=== PATIENT | female | born 1995 | race Caucasian/White ===

== ENCOUNTER 2024-11-01 13:28 | Emergency (ER) | payer OTHER ==
[2024-11-01] MEDS ORDERED: Famotidine 20 MG TAB ONE (13:57)
[2024-11-01 15:02] LABS: #Basophils Less than 0.03 10x3/uL (0.0-0.2); #Eosinophils 0.04 10x3/uL (0.0-0.5); #Monocytes 0.79 10x3/uL (0.0-1.1); #Neutrophils 7.98 10x3/uL (1.5-8.4); %Basophils 0.1 % (0.0-2.0); %Eosinophils 0.4 % (0.0-6.0); %Lymphocytes 15.4 % (18.0-47.0); %Monocytes 7.5 % (0.0-10.0); Hematocrit 35.2 % (34.9-44.5); Mean Corpuscular HGB CONC 34.1 g/dL (32.0-36.0); Mean Corpuscular Hemoglobin 29.6 pg (27.0-33.0); Mean Corpuscular Volume 86.9 fL (81.6-98.3); Mean Platelet Volume 9.4 fL (7.4-10.4); Platelet Count 264 10x3/uL (150-450); RBC Distribution Width 11.9 % (11.5-14.5); Red Blood Cell (RBC) Count 4.05 10x6/uL (3.90-5.03)
[2024-11-01 15:04] LABS: Bilirubin Neg (Negative); Blood, Urine 10 (Negative); Clarity Slightly Cloudy (Clear); Glucose, Urine (Dipstick) Normal (Negative); Ketone, Urine Negative (Negative); Leukocyte 25 (Negative); Nitrite Negative (Negative); Protein, Urine (Dipstick) Negative (Neg-Trace); Specific Gravity, Urine 1.015 (1.005-1.030); Urobilinogen Normal mg/dL (Less than 2)
[2024-11-01 15:38] LABS: ALT (SGPT) 11 U/L (8-55); AST (SGOT) 14 U/L (5-34); Albumin 3.1 g/dL (3.5-5.0); Alkaline Phosphatase 54 U/L (40-110); Anion Gap 11 mmol/L (10-20); BUN (Urea Nitrogen) 7 mg/dL (7.0-18.7); Bilirubin, Total 0.2 mg/dL (0.2-1.2); Calc. Creatinine Clearance 0 mL/min (70-130); Carbon Dioxide 22 mmol/L (22-29); Chloride 108 mmol/L (98-107); Estimated GFR 122; Globulin 3.5 g/dL (2.4-3.5); Glucose 73 mg/dL (70-105); Lipase 20 U/L (8-78); Potassium 3.4 mmol/L (3.5-5.1); Protein, Total 6.6 g/dL (6.0-8.3); Sodium 138 mmol/L (136-145)
[2024-11-01 15:44] LABS: Bacteria/HPF None Seen HPF (None Seen); CAUTI Indications for Culture Pregnancy; RBC/HPF 0-3 HPF (0-3); Squamous Epithelial 0-3 HPF (0-3); Urine Culture Reflex Yes Yes; WBC/HPF 0-3 HPF (0-3)
== END 2024-11-01 16:08 | disposition home or self-care (01) ==
LOC: CSHERS 13:28
DX: O99.891 Other specified diseases and conditions complicating pregnancy (principal); R10.13 Epigastric pain; R10.2 Pelvic and perineal pain; Z3A.14 14 weeks gestation of pregnancy
CPT/HCPCS: 76815; 80053; 81001; 83690; 85025; 86900; 86901; 87086

== ENCOUNTER 2024-11-28 19:41 | Observation (INO) | payer OTHER ==
[2024-11-28] MEDS ORDERED: Ondansetron ODT 4 MG TAB PO PRN (20:53)
[2024-11-28 22:05] VITALS: BMI 33.0
[2024-11-28] MEDS: Metoprolol Tartrate 25 MG TAB PO SCH (23:12)
[2024-11-28 23:13] LABS: Phosphorus 3.2 mg/dL (2.5-4.5)
[2024-11-28 23:14] LABS: Anion Gap 12 mmol/L (10-20); BUN (Urea Nitrogen) 7 mg/dL (7.0-18.7); Calc. Creatinine Clearance 226 mL/min (70-130); Calcium 8.5 mg/dL (7.8-10.44); Carbon Dioxide 18 mmol/L (22-29); Chloride 110 mmol/L (98-107); Estimated GFR 128; Glucose 83 mg/dL (70-105); Magnesium 1.6 mg/dL (1.6-2.6); Potassium 3.1 mmol/L (3.5-5.1); Sodium 137 mmol/L (136-145)
[2024-11-29] MEDS: Potassium Chloride 20 MEQ TAB PO SCH (00:33)
[2024-11-29] MEDS: Acetaminophen 325 MG TAB PO PRN (00:33)
[2024-11-29] MEDS: Magnesium 2 GM/50 ML(in water) 2 GM in Premix 1 BAG IVPB SCH (00:35)
[2024-11-29 05:40] LABS: #Basophils 0.03 10x3/uL (0.0-0.2); #Eosinophils 0.06 10x3/uL (0.0-0.5); #Monocytes 0.85 10x3/uL (0.0-1.1); #Neutrophils 9.48 10x3/uL (1.5-8.4); %Basophils 0.2 % (0.0-2.0); %Eosinophils 0.5 % (0.0-6.0); %Lymphocytes 20.6 % (18.0-47.0); %Monocytes 6.4 % (0.0-10.0); %Neutrophils 71.7 % (40.0-75.0); Hematocrit 30.5 % (34.9-44.5); Hemoglobin 10.5 g/dL (12.0-15.5); Mean Corpuscular HGB CONC 34.4 g/dL (32.0-36.0); Mean Corpuscular Hemoglobin 30.3 pg (27.0-33.0); Mean Corpuscular Volume 87.9 fL (81.6-98.3); Mean Platelet Volume 9.7 fL (7.4-10.4); Platelet Count 220 10x3/uL (150-450); RBC Distribution Width 12.8 % (11.5-14.5); Red Blood Cell (RBC) Count 3.47 10x6/uL (3.90-5.03); White Blood Cell (WBC) Count 13.23 10x3/uL (3.5-10.5)
[2024-11-29] MEDS: cefTRIAXone\\ROCEPHIN 1 GM in Sodium Chloride 0.9% 100 ML IVPB SCH (05:46)
[2024-11-29 05:58] LABS: ALT (SGPT) 7 U/L (Less than 34); AST (SGOT) 12 U/L (11-34); Alkaline Phosphatase 51 U/L (40-110); Anion Gap 13 mmol/L (10-20); BUN (Urea Nitrogen) 5 mg/dL (7.0-18.7); Bilirubin, Total 0.1 mg/dL (0.3-1.2); Calc. Creatinine Clearance 244 mL/min (70-130); Calcium 8.5 mg/dL (7.8-10.44); Carbon Dioxide 17 mmol/L (22-29); Chloride 112 mmol/L (98-107); Estimated GFR 130; Globulin 3.2 g/dL (2.4-3.5); Glucose 86 mg/dL (70-105); Iron 43 ug/dL (50-170); Iron Binding Capacity, Total 281 mcg/dL (265-497); Potassium 3.4 mmol/L (3.5-5.1); Protein, Total 6.2 g/dL (6.0-8.3); Sodium 139 mmol/L (136-145)
[2024-11-29] MEDS: Metoprolol Succinate XL 25 MG ER.TAB PO SCH ×2 (10:22→15:37)
[2024-11-29] MEDS: Magnesium Oxide 400 MG TAB PO SCH (10:22)
[2024-11-29] MEDS: Aspirin 81 mg Enteric Coated Tablet PO SCH (10:22)
[2024-11-29] MEDS: Prenatal Vitamin 1 TAB PO SCH (10:22)
[2024-11-29] MEDS: Potassium Bicarbonate/Cit Ac 20 MEQ TAB PO SCH (10:23)
[2024-11-29 18:02] LABS: Anion Gap 12 mmol/L (10-20); BUN (Urea Nitrogen) 6 mg/dL (7.0-18.7); Calc. Creatinine Clearance 234 mL/min (70-130); Calcium 8.4 mg/dL (7.8-10.44); Carbon Dioxide 18 mmol/L (22-29); Chloride 111 mmol/L (98-107); Estimated GFR 129; Glucose 125 mg/dL (70-105); Magnesium 1.8 mg/dL (1.6-2.6); Potassium 3.4 mmol/L (3.5-5.1); Sodium 138 mmol/L (136-145)
[2024-11-29 20:03] LABS: Potassium, Urine 14.9 mmol/L
[2024-11-30 04:36] VITALS: TEMP 98.2
[2024-11-30 04:45] LABS: #Basophils 0.04 10x3/uL (0.0-0.2); #Eosinophils 0.13 10x3/uL (0.0-0.5); #Monocytes 0.78 10x3/uL (0.0-1.1); %Basophils 0.3 % (0.0-2.0); %Lymphocytes 20.9 % (18.0-47.0); Hematocrit 33.6 % (34.9-44.5); Hemoglobin 11.5 g/dL (12.0-15.5); Mean Corpuscular HGB CONC 34.2 g/dL (32.0-36.0); Mean Corpuscular Hemoglobin 30.1 pg (27.0-33.0); Mean Platelet Volume 9.8 fL (7.4-10.4); Platelet Count 260 10x3/uL (150-450); RBC Distribution Width 13.2 % (11.5-14.5); Red Blood Cell (RBC) Count 3.82 10x6/uL (3.90-5.03); White Blood Cell (WBC) Count 13.09 10x3/uL (3.5-10.5)
[2024-11-30 05:00] LABS: Anion Gap 14 mmol/L (10-20); BUN (Urea Nitrogen) 6 mg/dL (7.0-18.7); Calc. Creatinine Clearance 244 mL/min (70-130); Calcium 9.1 mg/dL (7.8-10.44); Carbon Dioxide 18 mmol/L (22-29); Chloride 110 mmol/L (98-107); Estimated GFR 130; Glucose 80 mg/dL (70-105); Magnesium 1.8 mg/dL (1.6-2.6); Potassium 3.7 mmol/L (3.5-5.1); Sodium 138 mmol/L (136-145)
[2024-11-30] MEDS: Metoprolol Succinate XL 50 MG ER.TAB PO SCH (08:36)
[2024-11-30] MEDS: Magnesium 2 GM/50 ML(in water) 2 GM in Premix 1 BAG IVPB SCH (11:51)
[2024-11-30 15:30] VITALS: BP 100/61
== END 2024-11-30 16:57 | disposition home or self-care (01) ==
LOC: INTOOBSV 19:41 → CSHTELE 19:41
PROVIDERS: ADMIT Family Medicine; ATTEND Family Medicine
DX: O99.891 Other specified diseases and conditions complicating pregnancy (principal); R55 Syncope and collapse; R00.0 Tachycardia, unspecified; R00.2 Palpitations; O23.42 Unspecified infection of urinary tract in pregnancy, second trimester; O99.012 Anemia complicating pregnancy, second trimester; O99.42 Diseases of the circulatory system complicating childbirth; I34.0 Nonrheumatic mitral (valve) insufficiency; O99.112 Other diseases of the blood and blood-forming organs and certain disorders involving the immune mechanism complicating pregnancy, second trimester; D72.829 Elevated white blood cell count, unspecified; O99.282 Endocrine, nutritional and metabolic diseases complicating pregnancy, second trimester; E87.8 Other disorders of electrolyte and fluid balance, not elsewhere classified; Z3A.18 18 weeks gestation of pregnancy; Z88.0 Allergy status to penicillin; Z91.018 Allergy to other foods; Z79.82 Long term (current) use of aspirin; Z79.899 Other long term (current) drug therapy
CPT/HCPCS: 36415; 80048; 80053; 81002; 82436; 82533; 82728; 83540; 83550; 83735; 84100; 84133; 84300; 85025; 86140; 93005; 93010; 96374; 96375; 96376; G0378; J0696; J3475